=== PATIENT | female | born 1925 | race Caucasian/White ===

== ENCOUNTER 2017-01-12 07:36 | Observation (INO) | payer OTHER ==
[2017-01-12] MEDS ORDERED: BACITRACIN IRRIGATION/NS 50,000 UNITS/1,000 ML BTL IRR ONE ×2 (07:42)
[2017-01-12] MEDS ORDERED: NS 1,000 ML IV ONE ×2 (07:42)
[2017-01-12] MEDS ORDERED: diphenhydrAMINE 25 MG CAP PO ONE ×2 (07:42)
[2017-01-12] MEDS ORDERED: DIAZEPAM 5 MG TAB PO ONE ×2 (07:42)
[2017-01-12] MEDS ORDERED: ceFAZolin 2 GM/SWFI 2 GM/20 ML SYR IVP ONE ×2 (07:42)
--- NOTE | 2017-01-12 08:10 | CPEKG ---
Heart Rate: 72 RR Interval: 833 P-R Interval: 212 QRSD Interval: 158 QT Interval: 456 QTC Interval: 500 P Norman: 23 QRS Norman: -48 T Wave Norman: 125 EKG Severity - ABNORMAL ECG - EKG Impression: SINUS RHYTHM EKG Impression: LEFT BUNDLE BRANCH BLOCK Electronically Signed By: Lan Irene 12-Jan-2017 10:25:57
[2017-01-12 08:30] LABS: PLATELET COUNT 235 10^3/uL (150-400)
[2017-01-12 08:38] LABS: INR 0.99 (0.83-1.16)
[2017-01-12] MEDS ORDERED: LIDOCAINE 1% 300 MG/30 ML SDV ONE ×2 (09:07)
[2017-01-12] MEDS ORDERED: fentaNYL 100 MCG/2 ML INJ ONE ×2 (09:07)
[2017-01-12] MEDS ORDERED: BUPIVACAINE 0.5% 30 ML SDV ONE ×2 (09:08)
[2017-01-12] MEDS ORDERED: LIDO/EPI 1% **for epidural** 30 ML SDV ONE ×2 (09:08)
[2017-01-12] MEDS ORDERED: MIDAZOLAM 2 MG/2 ML VIAL ONE ×2 (09:08)
[2017-01-12] MEDS ORDERED: IOPAMIDOL (ISOVUE-300) 100 ML BTL ONE ×2 (09:10)
--- NOTE | 2017-01-12 11:43 | PDPROPOC ---
Sedation Plan of Care Sedation Plan of Care: vital signs stable, mental status noted, patient educated of risks, benefits, alternatives, patient can tolerate sedation ASA Classification: ASA 2 Planned drugs: fentanyl, midazolam Mallampati Score: Class 1 Mallampati Reference Image: Patient passed 3-3-2 rule?: Yes
--- NOTE | 2017-01-12 11:43 | PDHPUP ---
History & Physical Update H&P update statement: This history and physical update is based on an assessment of the patient which was completed after admission or registration (within 24 hours), but prior to the surgery/procedure. H&P update: H&P reviewed & patient examined, no change in patient's condition since H&P completed
[2017-01-12] MEDS ORDERED: hydrALAZINE 20 MG/ML VIAL ONE ×2 (12:41)
--- NOTE | 2017-01-12 13:46 | CPEKG ---
Heart Rate: 61 RR Interval: 984 P-R Interval: 189 QRSD Interval: 166 QT Interval: 512 QTC Interval: 516 QRS Marquette: -49 T Wave Marquette: 136 EKG Severity - ABNORMAL ECG - EKG Impression: ATRIAL-PACED COMPLEXES EKG Impression: LEFT BUNDLE BRANCH BLOCK EKG Impression: PACED RHYTHM HAS REPLACED SINUS RHYTHM NOTED ON PRIOR Electronically Signed By: Lan Irene 13-Jan-2017 08:23:38
--- NOTE | 2017-01-12 14:14 | CPIP ---
[f rep st] INVASIVE CARDIAC PROCEDURE DATE OF PROCEDURE: 01/12/2017 INDICATIONS: The patient is an 89-year-old female with a history of a baseline left bundle branch bl ock. She has been experiencing episodes of presyncope. Outpatient telemetry monitoring has indicate d episodes of sinus arrest up to 7 seconds in duration. PROCEDURE: Implantation of a dual-chamber pacemaker. TECHNIQUE: Following informed consent, in the fasting state and following the administration of prop hylactic antibiotics, the patient was brought to the cardiac catheterization laboratory. The left est was prepped and draped in the usual sterile fashion. A mixture of bupivacaine and lidocaine was infiltrated into the left infraclavicular fossa. Using the #10 blade, a 2 cm incision was made. Using blunt and sharp dissection, the pacemaker pocke t was fashioned. A venogram was performed. This identified a widely patent axillary vein. Using th e modified Seldinger technique, access was gained to the axillary vein at the level of the first rib. Attempts at passing a regular J-Wire were unsuccessful. The patient has very tortuous brachiocepha lic. As a result, we used an angled Glidewire to gain access to the right atrium. This allowed plac ement of a long 7-Mongolian sheath. We were able to place 2 long individual 0.035 J-Wires within the [facility] atrium. At this point, the long sheath was removed and placed over 1 of the remaining J-Wires. The J-Wire was removed and the right ventricular lead was brought to the field and passed in the [facility] t ventricular apex, screwed into place and the sheath torn away. The lead was then secured to the [facility] floor using 0 Ethibond. Using the remaining J-Wire, a 2nd 7-Mongolian long sheath was pl aced. This allowed us to position the atrial lead in the right atrial appendage. The lead was screw ed into place, the sheath torn away and the lead secured to the pacemaker pocket floor using 0 Ethibo nd. The pocket was inspected. Antibiotic solution was then infiltrated into the pocket. All bleeders we re cauterized. The device was brought to the field, both leads identified by serial number and affix ed to the header according to financial underwriter guidelines. The device was then placed in the pocket. Th e device was then reinterrogated wirelessly. This demonstrated stable thresholds. The pocket was th en closed in 3 layers, initially using 2 layers of interrupted suture with 2-0 and 3-0 Vicryl and run cony Stratafix for the skin. Steri-Strips and a dry dressing were applied. DEVICE INFORMATION: The pacemaker is a [employer] Assurity MRI-compatible device, reference nu [facility] [id number], serial number [id number]. The ventricular lead is a [employer] Tendril STX 2088TC, 5 2 cm lead, serial number [id number]. The atrial lead is [employer] Tendril STX 2088TC, 46 cm le ad, serial number [id number]. Sensed P waves 1.7 mV with a capture 0.3 mV at 0.4 msec, and a lead impedance of 487 ohms. In the ve ntricle, sensed R-waves 11.7 mV, lead impedance 559 ohms and a capture of 1 mV at 0.5 msec. COMPLICATIONS: None. DISPOSITION: The patient was transferred to the CVC. She will be admitted to the hospital overnight . Anticipate she will be discharged home in the morning. /[id number]/MODL
--- NOTE | 2017-01-12 14:14 | CPIP ---
[f rep st] INVASIVE CARDIAC PROCEDURE DATE OF PROCEDURE: 01/12/2017 INDICATIONS: The patient is an 89-year-old female with a history of a baseline left bundle branch bl ock. She has been experiencing episodes of presyncope. Outpatient telemetry monitoring has indicate d episodes of sinus arrest up to 7 seconds in duration. PROCEDURE: Implantation of a dual-chamber pacemaker. TECHNIQUE: Following informed consent, in the fasting state and following the administration of prop hylactic antibiotics, the patient was brought to the cardiac catheterization laboratory. The left est was prepped and draped in the usual sterile fashion. A mixture of bupivacaine and lidocaine was infiltrated into the left infraclavicular fossa. Using the #10 blade, a 2 cm incision was made. Using blunt and sharp dissection, the pacemaker pocke t was fashioned. A venogram was performed. This identified a widely patent axillary vein. Using th e modified Seldinger technique, access was gained to the axillary vein at the level of the first rib. Attempts at passing a regular J-Wire were unsuccessful. The patient has very tortuous brachiocepha lic. As a result, we used an angled Glidewire to gain access to the right atrium. This allowed plac ement of a long 7-Jordanian sheath. We were able to place 2 long individual 0.035 J-Wires within the [facility] atrium. At this point, the long sheath was removed and placed over 1 of the remaining J-Wires. The J-Wire was removed and the right ventricular lead was brought to the field and passed in the [facility] t ventricular apex, screwed into place and the sheath torn away. The lead was then secured to the [facility] pocket floor using 0 Ethibond. Using the remaining J-Wire, a 2nd 7-Jordanian long sheath was pl aced. This allowed us to position the atrial lead in the right atrial appendage. The lead was screw ed into place, the sheath torn away and the lead secured to the pacemaker pocket floor using 0 Ethibo nd. The pocket was inspected. Antibiotic solution was then infiltrated into the pocket. All bleeders we re cauterized. The device was brought to the field, both leads identified by serial number and affix ed to the header according to desulfurizer operator guidelines. The device was then placed in the pocket. Th e device was then reinterrogated wirelessly. This demonstrated stable thresholds. The pocket was th en closed in 3 layers, initially using 2 layers of interrupted suture with 2-0 and 3-0 Vicryl and run cony Stratafix for the skin. Steri-Strips and a dry dressing were applied. DEVICE INFORMATION: The pacemaker is a [employer] Assurity MRI-compatible device, reference nu [facility] [id number], serial number [id number]. The ventricular lead is a [employer] Tendril STX 2088TC, 5 2 cm lead, serial number [id number]. The atrial lead is [employer] Tendril STX 2088TC, 46 cm le ad, serial number [id number]. Sensed P waves 1.7 mV with a capture 0.3 mV at 0.4 msec, and a lead impedance of 487 ohms. In the ve ntricle, sensed R-waves 11.7 mV, lead impedance 559 ohms and a capture of 1 mV at 0.5 msec. COMPLICATIONS: None. DISPOSITION: The patient was transferred to the CVC. She will be admitted to the hospital overnight . Anticipate she will be discharged home in the morning. /[id number]/MODL
--- NOTE | 2017-01-12 14:14 | CPIP ---
[f rep st] INVASIVE CARDIAC PROCEDURE DATE OF PROCEDURE: 01/12/2017 INDICATIONS: The patient is an 89-year-old female with a history of a baseline left bundle branch bl ock. She has been experiencing episodes of presyncope. Outpatient telemetry monitoring has indicate d episodes of sinus arrest up to 7 seconds in duration. PROCEDURE: Implantation of a dual-chamber pacemaker. TECHNIQUE: Following informed consent, in the fasting state and following the administration of prop hylactic antibiotics, the patient was brought to the cardiac catheterization laboratory. The left est was prepped and draped in the usual sterile fashion. A mixture of bupivacaine and lidocaine was infiltrated into the left infraclavicular fossa. Using the #10 blade, a 2 cm incision was made. Using blunt and sharp dissection, the pacemaker pocke t was fashioned. A venogram was performed. This identified a widely patent axillary vein. Using th e modified Seldinger technique, access was gained to the axillary vein at the level of the first rib. Attempts at passing a regular J-Wire were unsuccessful. The patient has very tortuous brachiocepha lic. As a result, we used an angled Glidewire to gain access to the right atrium. This allowed plac ement of a long 7-South Sudanese sheath. We were able to place 2 long individual 0.035 J-Wires within the [facility] atrium. At this point, the long sheath was removed and placed over 1 of the remaining J-Wires. The J-Wire was removed and the right ventricular lead was brought to the field and passed in the [facility] t ventricular apex, screwed into place and the sheath torn away. The lead was then [facility] the [facility] using 0 Ethibond. Using the remaining J-Wire, a 2nd 7-[place] Sudanese long sheath was pl aced. This allowed us to position the atrial lead in the right atrial appendage. The lead was screw ed into place, the sheath torn away and the lead secured to the pacemaker pocket floor using 0 Ethibo nd. The pocket was inspected. Antibiotic solution was then infiltrated into the pocket. All bleeders we re cauterized. The device was brought to the field, both leads identified by serial number and affix ed to the header according to mail machine operator guidelines. The device was then placed in the pocket. Th e device was then reinterrogated wirelessly. This demonstrated stable thresholds. The pocket was th en closed in 3 layers, initially using 2 layers of interrupted suture with 2-0 and 3-0 Vicryl and run cony Stratafix for the skin. Steri-Strips and a dry dressing were applied. DEVICE INFORMATION: The pacemaker is a [employer] Assurity MRI-compatible device, reference nu [facility] [id number], serial number [id number]. The ventricular lead is a [employer] Tendril STX 2088TC, 5 2 cm lead, serial number [id number]. The atrial lead is [employer] Tendril STX 2088TC, 46 cm le ad, serial number [id number]. Sensed P waves 1.7 mV with a capture 0.3 mV at 0.4 msec, and a lead impedance of 487 ohms. In the ve ntricle, sensed R-waves 11.7 mV, lead impedance 559 ohms and a capture of 1 mV at 0.5 msec. COMPLICATIONS: None. DISPOSITION: The patient was transferred to the CVC. She will be admitted to the hospital overnight . Anticipate she will be discharged home in the morning. /[id number]/MODL
[2017-01-12] MEDS: ACETAMINOPHEN 650 MG/20.3 ML UDCUP PO PRN ×4 (16:19→20:45)
[2017-01-12] MEDS: LOSARTAN POTASSIUM 50 MG TAB PO SCH ×2 (17:30)
[2017-01-12] MEDS: lamoTRIgine 100 MG TAB PO SCH ×2 (20:21)
[2017-01-12] MEDS ORDERED: LATANOPROST 0.005% 2.5 ML OPHT DROPS EACHEYE SCH ×4 (21:00)
[2017-01-12] MEDS ORDERED: ASPIRIN 81 MG CHEWABLE TAB PO SCH ×2 (21:00)
[2017-01-12] MEDS ORDERED: LEVOTHYROXINE 75 MCG TAB PO SCH ×2 (21:00)
[2017-01-13 05:04] VITALS: O2SAT 94
[2017-01-13] MEDS: ACETAMINOPHEN 650 MG/20.3 ML UDCUP PO PRN ×2 (07:21)
[2017-01-13] MEDS: lamoTRIgine 100 MG TAB PO SCH ×2 (08:12)
[2017-01-13] MEDS: LOSARTAN POTASSIUM 50 MG TAB PO SCH ×2 (08:12)
[2017-01-13 08:38] VITALS: RESP 18; TEMP 97.7
--- NOTE | 2017-01-13 09:03 | PDDCSUM ---
Discharge Summary Discharge Summary: This is a 89-year-old female admitted from clinic for elective pacemaker implantation by my partner Dr. Juan R Rodriguez. She has underlying left bundle branch block and presented with episodes of presyncope. She was found to have a 7 second sinus pause on monitoring. Pacemaker was placed yesterday, this is a dual-chamber [employer] pacemaker, there were no postprocedure complications. This morning on examination, her vital signs are stable, wound site is clean and dry without any evidence of bleeding or infection. S1-S2 regular rate and rhythm lungs are clear to auscultation bilaterally. I reviewed the chest x-ray from yesterday, there is no pneumothorax, there is limited slack present on the ventricular lead. Chest x-ray this morning is pending and will be reviewed by me prior to discharge. She will continue on her home medications, please refer to the home medication reconciliation list. She has been given instructions on postprocedure care including limitation of our movement, keeping pacemaker site dry and follow-up visits including wound check with [place] heart nurse in 1 week and to follow up with Dr. Rodriguez in 4 weeks. Device check this morning shows excellent subacute thresholds in the atrial and right ventricular leads.
[2017-01-13 09:17] VITALS: BP 121/80; PULSE 67
--- NOTE | 2017-01-14 16:38 | ASDISCHSUM ---
Discharge Information Plan Status:Home with No Needs Medically Cleared to Leave:01/13/2017 Discharge Date:01/13/2017 10:27 AM CM D/C Disposition:Home, Routine, Self-Care ADT D/C Disposition:Home, Routine, Self-Care Projected Discharge Date:01/13/2017 12:00 AM Transportation at D/C:Family Discharge Delay Reason: Follow-Up Date:01/13/2017 12:00 AM Discharge Slot: Final Diagnosis:Presyncope-pacer placed Placement Information Patient Contact Information Contact Name:KENYA Relationship:Ignacio Address: City: [facility] Phone: [facility]/[employer] Code: Email: Financial Information Financial Class: Primary Plan Desc:MEDICARE OUTPATIENT Primary Plan Number:[id number] Secondary Plan Desc:HUMANA Secondary Plan Number:[id number] Assessment Information Intervention Information Intervention Type:*CARDOZO-Signed Date of Service:01/12/2017 04:11 PM Patient Type:Observation Staff Member:Tara Taveras Hours: Discipline: Severity: Comment:
--- NOTE | 2017-01-14 16:38 | ASDISCHSUM ---
Discharge Information Plan Status:Home with No Needs Medically Cleared to Leave:01/13/2017 Discharge Date:01/13/2017 10:27 AM CM D/C Disposition:Home, Routine, Self-Care ADT D/C Disposition:Home, Routine, Self-Care Projected Discharge Date:01/13/2017 12:00 AM Transportation at D/C:Family Discharge Delay Reason: Follow-Up Date:01/13/2017 12:00 AM Discharge Slot: Final Diagnosis:Presyncope-pacer placed Placement Information Patient Contact Information Contact Name:KENYA Relationship:Ignacio Address: City: [facility] Phone: [facility]/[employer] Code: Email: Financial Information Financial Class: Primary Plan Desc:MEDICARE OUTPATIENT Primary Plan Number:[id number] Secondary Plan Desc:HUMANA Secondary Plan Number:[id number] Assessment Information Intervention Information Intervention Type:*CARDOZO-Signed Date of Service:01/12/2017 04:11 PM Patient Type:Observation Staff Member:Tara Taveras Hours: Discipline: Severity: Comment:
--- NOTE | 2017-01-14 16:38 | ASDISCHSUM ---
Discharge Information Plan Status:Home with No Needs Medically Cleared to Leave:01/13/2017 Discharge Date:01/13/2017 10:27 AM CM D/C Disposition:Home, Routine, Self-Care ADT D/C Disposition:Home, Routine, Self-Care Projected Discharge Date:01/13/2017 12:00 AM Transportation at D/C:Family Discharge Delay Reason: Follow-Up Date:01/13/2017 12:00 AM Discharge Slot: Final Diagnosis:Presyncope-pacer placed Placement Information Patient Contact Information Contact Name:KENYA Relationship:Ignacio Address: City: [facility] Phone: [facility]/[employer] Code: Email: Financial Information Financial Class: Primary Plan Desc:MEDICARE OUTPATIENT Primary Plan Number:[id number] Secondary Plan Desc:HUMANA Secondary Plan Number:[id number] Assessment Information Intervention Information Intervention Type:*CARDOZO-Signed Date of Service:01/12/2017 04:11 PM Patient Type:Observation Staff Member:Tara Taveras Hours: Discipline: Severity: Comment:
== END 2017-01-13 10:27 | disposition home or self-care (01) ==
LOC: FCATH 07:36 → F2W 13:39
PROVIDERS: ADMIT Internal Medicine Cardiovascular Disease; ATTEND Internal Medicine Cardiovascular Disease
PROC: 02HK3JZ Insertion of Pacemaker Lead into Right Ventricle, Percutaneous Approach (ICD-10-PCS; principal; 2017-01-12)
PROC: 02H63JZ Insertion of Pacemaker Lead into Right Atrium, Percutaneous Approach (ICD-10-PCS; principal; 2017-01-12)
DX: I49.5 Sick sinus syndrome (principal); I47.1 Supraventricular tachycardia; I45.5 Other specified heart block; R55 Syncope and collapse; I44.7 Left bundle-branch block, unspecified; I10 Essential (primary) hypertension; G40.909 Epilepsy, unspecified, not intractable, without status epilepticus
CPT/HCPCS: 33208; 71010; 71020; 93005; C1785; C1898; J0360; J0690; J2250; J3010; Q9967